=== PATIENT | female | born 1965 | race Caucasian/White ===

== ENCOUNTER 2017-03-13 22:02 | Emergency (ER) | payer SELFPAY ==
--- NOTE | 2017-03-13 22:39 | DIAGNOSTIC IMAGING REPORT ---
PROCEDURE: XR LUMBAR SPINE 5 VIEWS INDICATION: LOWER BACK PAIN TECHNIQUE: Five views. COMPARISON: None. FINDINGS: Normal alignment without fracture or suspicious osseous lesion. Straightening of the lumbar spine. Mild L2-3, L3-4, L4-5 and moderate L5-S1 disc space narrowing. Mild spur formation. No spondylolysis. Degenerative changes of the lower facets. Soft tissues are unremarkable. IMPRESSION: 1. Mild degenerative changes with multilevel disc space narrowing 2. Loss of lordosis suggestive of muscular spasm.
--- NOTE | 2017-03-13 23:37 | ED NURSING NOTES ---
Clinical Report - Nurses [facility] [address] [place] [address] 03/13/2017 22:03 Patient: HEATHER CARPENTER TRIAGE Triage time 2210. Acuity: LEVEL 4. Chief Complaint: BACK PAIN. 22:10. ASHLEY COMA SCORE: [place] Coma Scale: 15- eyes open spontaneously (4); best verbal response- oriented x 4 (5); best motor response- obeys commands (6). --22:17 Roxann Francisco R.N. 22:10 03/13/17. BP: 143/86. HR: 60. RR: 22. O2 saturation: 98% on room air. Temp: 98.2 F. --22:17 Roxann Francisco R.N. Weight: 106.5 kg stated. Height/Length: 67 inches Per Patient. BMI: 36.8. --22:14 Roxann Francisco R.N. Medications Ibuprofen Oral 400 mg, 3x a day as needed, last dose 0. --22:15 Roxann Francisco R.N. Allergies No Known Drug Allergy. --22:15 Roxann Francisco R.N. History Arrived by private vehicle. Historian: patient. Accompanied by spouse. No primary care physician. The patient has had trouble walking. PAST MEDICAL HX: The patient is post-menopausal. SURGERY HX: Appendectomy. SOCIAL HX: Never smoker. Occasional alcohol use. No drug use. --22:17 Roxann Francisco R.N. ( bent over to apple picker a cat, swiveled around and felt that she strained a muscle in her back). --22:19 Roxann Francisco R.N. PROBLEMS: Pneumonia. URI. --22:16 Roxann Francisco R.N. Interventions ID band on patient. To treatment room. --22:17 Roxann Francisco R.N. PHYSICAL ASSESSMENT 22:10. To room via wheelchair. GENERAL / NEURO / PSYCH: Alert. Oriented X 4. Appears in pain. RESPIRATORY: Respirations not labored. CVS: Capillary refill less than 2 seconds. GI / : Abdomen soft. ( denies urinary symptoms). EXTREMITIES: Limited ROM present. BACK: Limited ROM of the back. Soft tissue tenderness. --22:18 Roxann Francisco R.N. NURSING PROGRESS NOTES 22:10. Cold pack applied. Patient gowned. Head of bed elevated. Reassurance given. Patient identifiers checked. Call light placed in reach. Side rails up. Bed placed in lowest position. Patient ready for evaluation- chart flagged. --22:17 Roxann Francisco R.N. 22:24 03/13/17. Patient transported by wheelchair with tech. --22:24 Roxann Francisco R.N. 22:33. Patient returned from radiology by wheelchair with tech. --22:35 Roxann Francisco R.N. 22:36 03/13/2017 Toradol (Ketorolac Tromethamine) IM 60 mg given. Given in the right ventral gluteus. Allergies verified and confirmed 5 rights. --22:36 Roxann Francisco R.N. 22:36 03/13/2017 Cyclobenzaprine PO Tablets 10 mg given. Allergies verified, confirmed 5 rights and sedative warning given to the patient. --22:36 Roxann Francisco R.N. Care transferred and report received. --22:54 Nena Calix R.N. DISPOSITION / DISCHARGE Condition at departure: improved and stable. No learning barriers present. Discharge instructions provided and reviewed with the patient. Reviewed medication(s) side effects, precautions, dosing and course information. Prescription(s) given to the patient. Patient verbalized understanding. Written instructions provided in Icelandic. The patient was discharged home and accompanied by spouse. She left the Emergency Department in a wheelchair and via private vehicle. Spouse driving. --23:47 Nena Calix R.N. 23:47 03/13/17. BP: 149/95. HR: 84. RR: 16. O2 saturation: 99% on room air. Temp: deferred. [place]-Hernandez pain scale: 4/10. --23:47 Nena Calix R.N. Locked/Released at 03/13/2017 23:48 by Nena Calix R.N.
--- NOTE | 2017-03-13 23:37 | ED ORDER SUMMARY ---
..... Patient: HEATHER CARPENTER OrderSheet [facility] VisitID: [id number] [place] [address] 52y, F Registration Date/Time: 03/13/2017 ORDER SHEET Weight: 106.5 kg (stated) Allergies: No Known Drug Allergy GENERAL ORDERS: Lumbar Spine 5V Urgent (22:17 03/13/2017 Marquise Blanco) (Ack 22:22 [facility] ER Transportation Agent) (22:31 DDean R.N.) MEDICATION ORDERS: Cyclobenzaprine PO 10 mg (NOW) (22:18 03/13/2017 Marquise Blanco) (Ack 22:25 DDean R.N.) (22:36 DDean R.N.) Toradol IM 60 mg (NOW) (22:25 03/13/2017 Marquise Blanco) (Ack 22:31 DDean R.N.) (22:36 DDean R.N.) IV FLUIDS: Toradol IV 30 mg (NOW) (22:18 03/13/2017 Marquise Blanco) (Ack 22:25 DDean R.N.) (Cancelled: Duplicate Order22:25 Marquise Blanco) ORDER SHEET NOTES: [Electronically signed by Nena Calix R.N. (23:48 03/13/2017)] [Electronically signed by Sonido Goldstein Dr. (04:59 03/16/2017)] [Electronically locked/signed by Nena Calix R.N. (23:48 03/13/2017)]
--- NOTE | 2017-03-13 23:37 | ED ORDER SUMMARY ---
..... Patient: HEATHER CARPENTER OrderSheet [facility] VisitID: [id number] [place] [address] 52y, F Registration Date/Time: 03/13/2017 ORDER SHEET Weight: 106.5 kg (stated) Allergies: No Known Drug Allergy GENERAL ORDERS: Lumbar Spine 5V Urgent (22:17 03/13/2017 Marquise Blanco) (Ack 22:22 [facility] ER Deputy Coroner Investigator) (22:31 DDean R.N.) MEDICATION ORDERS: Cyclobenzaprine PO 10 mg (NOW) (22:18 03/13/2017 Marquise Blanco) (Ack 22:25 DDean R.N.) (22:36 DDean R.N.) Toradol IM 60 mg (NOW) (22:25 03/13/2017 Marquise Blanco) (Ack 22:31 DDean R.N.) (22:36 DDean R.N.) IV FLUIDS: Toradol IV 30 mg (NOW) (22:18 03/13/2017 Marquise Blanco) (Ack 22:25 DDean R.N.) (Cancelled: Duplicate Order22:25 Marquise Blanco) ORDER SHEET NOTES: [Electronically signed by Nena Calix R.N. (23:48 03/13/2017)] [Electronically signed by Sonido Goldstein Dr. (04:59 03/16/2017)] [Electronically locked/signed by Nena Calix R.N. (23:48 03/13/2017)]
--- NOTE | 2017-03-13 23:37 | ED NURSING NOTES ---
Clinical Report - Nurses [facility] [address] [place] [address] 03/13/2017 22:03 Patient: HEATHER CARPENTER TRIAGE Triage time 2210. Acuity: LEVEL 4. Chief Complaint: BACK PAIN. 22:10. ASHLEY COMA SCORE: [place] Coma Scale: 15- eyes open spontaneously (4); best verbal response- oriented x 4 (5); best motor response- obeys commands (6). --22:17 Roxann Francisco R.N. 22:10 03/13/17. BP: 143/86. HR: 60. RR: 22. O2 saturation: 98% on room air. Temp: 98.2 F. --22:17 Roxann Francisco R.N. Weight: 106.5 kg stated. Height/Length: 67 inches Per Patient. BMI: 36.8. --22:14 Roxann Francisco R.N. Medications Ibuprofen Oral 400 mg, 3x a day as needed, last dose 0. --22:15 Roxann Francisco R.N. Allergies No Known Drug Allergy. --22:15 Roxann Francisco R.N. History Arrived by private vehicle. Historian: patient. Accompanied by spouse. No primary care physician. The patient has had trouble walking. PAST MEDICAL HX: The patient is post-menopausal. SURGERY HX: Appendectomy. SOCIAL HX: Never smoker. Occasional alcohol use. No drug use. --22:17 Roxann Francisco R.N. 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 --22:19 Roxann Francisco R.N. PROBLEMS: Pneumonia. URI. --22:16 Roxann Francisco R.N. Interventions ID band on patient. To treatment room. --22:17 Roxann Francisco R.N. PHYSICAL ASSESSMENT 22:10. To room via wheelchair. GENERAL / NEURO / PSYCH: Alert. Oriented X 4. Appears in pain. RESPIRATORY: Respirations not labored. CVS: Capillary refill less than 2 seconds. GI / : Abdomen soft. ( denies urinary symptoms). EXTREMITIES: Limited ROM present. BACK: Limited ROM of the back. Soft tissue tenderness. --22:18 Roxann Francisco R.N. NURSING PROGRESS NOTES 22:10. Cold pack applied. Patient gowned. Head of bed elevated. Reassurance given. Patient identifiers checked. Call light placed in reach. Side rails up. Bed placed in lowest position. Patient ready for evaluation- chart flagged. --22:17 Roxann Francisco R.N. 22:24 03/13/17. Patient transported by wheelchair with tech. --22:24 Roxann Francisco R.N. 22:33. Patient returned from radiology by wheelchair with tech. --22:35 Roxann Francisco R.N. 22:36 03/13/2017 Toradol (Ketorolac Tromethamine) IM 60 mg given. Given in the right ventral gluteus. Allergies verified and confirmed 5 rights. --22:36 Roxann Francisco R.N. 22:36 03/13/2017 Cyclobenzaprine PO Tablets 10 mg given. Allergies verified, confirmed 5 rights and sedative warning given to the patient. --22:36 Roxann Francisco R.N. Care transferred and report received. --22:54 Nena Calix R.N. DISPOSITION / DISCHARGE Condition at departure: improved and stable. No learning barriers present. Discharge instructions provided and reviewed with the patient. Reviewed medication(s) side effects, precautions, dosing and course information. Prescription(s) given to the patient. Patient verbalized understanding. Written instructions provided in [place]. The patient was discharged home and accompanied by spouse. She left the Emergency Department in a wheelchair and via private vehicle. Spouse driving. --23:47 Nena Calix R.N. 23:47 03/13/17. BP: 149/95. HR: 84. RR: 16. O2 saturation: 99% on room air. Temp: deferred. [place]-Hernandez pain scale: 4/10. --23:47 Nena Calix R.N. Locked/Released at 03/13/2017 23:48 by Nena Calix R.N.
--- NOTE | 2017-03-13 23:37 | ED CLINICAL REPORT ---
Clinical Report - Physicians/Mid Levels [facility] [address] [place] [address] 03/13/2017 22:03 Patient: HEATHER CARPENTER Time Seen: 2108. Arrived- By private vehicle. Historian- patient. HISTORY OF PRESENT ILLNESS Chief Complaint: BACK PAIN. It is described as being moderate in degree and in the area of the left mid lumbar spine, left lower lumbar spine, right mid lumbar spine and right lower lumbar spine. The quality is noted to be aching. No radiation. Modifying factors. (worsened by moving. better with rest.). Onset- past few days and it is still present. It was abrupt in onset and has been constant but is not gone now. No bladder dysfunction, bowel dysfunction, sensory loss or motor loss. Additional history - no fever, saddle anesthesia, urinary retention, or incontinence. Patient notes the possibility of an injury but denies injury to the head or neck. Mechanism of injury- she was lifting (kitten and turning). Occurred at home. No other injury. Similar symptoms previously: None. Recent medical care: Not recently seen/assessed. REVIEW OF SYSTEMS No fever, skin rash, headache, abdominal pain or nausea. No vomiting. All systems otherwise negative, except as recorded above. PAST HISTORY See nurses notes. SOCIAL HISTORY Never smoker. Occasional alcohol use. No drug use. No recent travel. Is a local resident. ADDITIONAL NOTES The nursing notes have been reviewed. PHYSICAL EXAM Vital Signs: 03/13/2017 22:10 BP: 143/86. HR: 60. RR: 22. O2 saturation: 98%. Temp: 98.2 F. Oxygen saturation normal. Appearance: Alert. No acute distress. HEENT: Normal external inspection. Eyes: Pupils equal, round and reactive to light. ENT: Ears normal. Pharynx normal. Neck: Normal inspection. Neck nontender. Painless ROM. CVS: Heart sounds normal. Pulses normal. Respiratory: No respiratory distress. Breath sounds normal. Abdomen: No visible injury. Soft and nontender. Bowel sounds normal. Back: Normal inspection. Mild soft tissue tenderness in the right upper and mid and left upper and mid lumbar area. No vertebral point tenderness. (no overlying skin changes). Skin: Skin warm and dry. Normal skin color. No rash. Normal skin turgor. Extremities: Extremities exhibit normal ROM. Extremities nontender. Neuro: Oriented X 3. Mood/affect normal. No motor deficit. No sensory deficit. LABS, X-RAYS, AND EKG LS-Spine X-rays: (PROCEDURE: XR LUMBAR SPINE 5 VIEWS INDICATION: LOWER BACK PAIN TECHNIQUE: Five views. COMPARISON: None. FINDINGS: Normal alignment without fracture or suspicious osseous lesion. Straightening of the lumbar spine. Mild L2-3, L3-4, L4-5 and moderate L5-S1 disc space narrowing. Mild spur formation. No spondylolysis. Degenerative changes of the lower facets. Soft tissues are unremarkable. IMPRESSION: 1. Mild degenerative changes with multilevel disc space narrowing 2. Loss of lordosis suggestive of muscular spasm.). Views: cross table lateral, AP, lateral, obliques and coned down view. The X-rays were independently viewed by me and interpreted by the radiologist. The X-rays were discussed with the radiologist (via pacs). PROGRESS AND PROCEDURES Course of Care: The patient is a pleasant 52 yo female presenting for back pain. Based on the patient's examination and history, patient has no red flags requiring imaging at this time. Except for age. The patient will be managed conservatively at this time with nonsteroidal anti-inflammatory medications. Patient had driven here to the emergency department. Nonsedating medications offered. Patient was agreeable to the treatment and plan. Pain medication as provided. Patient reports slight improvement with the discomfort. Patient continues to be neurovascularly intact. Had long discussion with patient in regards to back pain. Recommended patient follow up with his primary care doctor for further evaluation and management of the back pain. I discussed the patient workup, diagnosis, home care, follow-up, and return precautions. All questions answered. The patient expressed understanding of these instructions and was agreeable to them. Do not feel patient has cauda equina syndrome, conus medullaris syndrome, or paraspinal infection. Did not feel this is atypical presentation for aortic dissection or appendicitis. Patient is nontoxic and in no acute distress. Did not feel patient is being admitted to the hospital or require further emergency department workup/evaluation. Disposition: Discharged. Condition: good. CLINICAL IMPRESSION 03/13/2017 22:10 BP: 143/86. HR: 60. RR: 22. O2 saturation: 98%. Temp: 98.2 F. Oxygen saturation normal. Acute lumbar strain. Essential hypertension. INSTRUCTIONS Warnings: GENERAL WARNINGS: Return or contact your physician immediately if your condition worsens or changes unexpectedly, if not improving as expected, or if other problems arise. SPECIFICALLY, return if you develop weakness, numbness, tingling, pain or incontinence. fever or other concerns. Your Current Medications: CONTINUE TAKING THE FOLLOWING MEDICATIONS: Ibuprofen Oral : 400 mg 3x a day, Last: 2200, prn. Prescription Medications: Flexeril 10 mg: take 1 orally every 8 hours as needed for muscle spasm or pain. Dispense thirty (30). No refills. Substitution is permissible. Motrin 600 mg tablets: take 1 tablet orally every 6 hours as needed for pain, stiffness or swelling. Dispense thirty (30). No refill. Substitution is permissible. (take with food) Follow-up: Return to the emergency department as needed. Follow up with your doctor in three days. Reason for referral: recheck today's concerns. Summary of care provided to patient via paper. Screening today revealed the patient's blood pressure to be in the hypertensive range. The patient should follow up with a primary care provider for blood pressure management. Understanding of the discharge instructions verbalized by patient. (Electronically signed by Sonido Goldstein Dr. 03/16/2017 4:59)
--- NOTE | 2017-03-16 04:59 | ED DISCHARGE INSTRUCTIONS ---
Patient: HEATHER CARPENTER General Instructions [facility] VisitID: [id number] [place] [address] 52y, F Registration Date/Time: 03/13/2017 03/13/2017 22:10 BP: 143/86. HR: 60. RR: 22. O2 saturation: 98%. Temp: 98.2 F. Oxygen saturation normal. Acute lumbar strain. Essential hypertension. INSTRUCTIONS Warnings: GENERAL WARNINGS: Return or contact your physician immediately if your condition worsens or changes unexpectedly, if not improving as expected, or if other problems arise. SPECIFICALLY, return if you develop weakness, numbness, tingling, pain or incontinence. fever or other concerns. Your Current Medications: CONTINUE TAKING THE FOLLOWING MEDICATIONS: Ibuprofen Oral : 400 mg 3x a day, Last: 2200, prn. Prescription Medications: Flexeril 10 mg: take 1 orally every 8 hours as needed for muscle spasm or pain. Dispense thirty (30). No refills. Substitution is permissible. Motrin 600 mg tablets: take 1 tablet orally every 6 hours as needed for pain, stiffness or swelling. Dispense thirty (30). No refill. Substitution is permissible. (take with food) Follow-up: Return to the emergency department as needed. Follow up with your doctor in three days. Reason for referral: recheck today's concerns. Summary of care provided to patient via paper. Screening today revealed the patient's blood pressure to be in the hypertensive range. The patient should follow up with a primary care provider for blood pressure management. Understanding of the discharge instructions verbalized by patient. ADDITIONAL INFORMATION Back Pain [Acute Or Chronic] Back pain is usually caused by an injury to the muscles or ligaments of the spine. Sometimes the disks that separate each bone in the spine may bulge and cause pain by pressing on a nearby nerve. Back pain may also appear after a sudden twisting/bending force (such as in a car accident), after a simple awkward movement, or lifting something heavy with poor body positioning. In either case, muscle spasm is often present and adds to the pain. Acute back pain usually gets better in one to two weeks. Back pain related to disk disease, arthritis in the spinal joints or spinal stenosis (narrowing of the spinal canal) can become chronic and last for months or years. Unless you had a physical injury (for example, a car accident or fall) X-rays are usually not ordered for the initial evaluation of back pain. If pain continues and does not respond to medical treatment, x-rays and other tests may be performed at a later time. Home Care: You may need to stay in bed the first few days. But, as soon as possible, begin sitting or walking to avoid problems with prolonged bed rest (muscle weakness, worsening back stiffness and pain, blood clots in the legs). When in bed, try to find a position of comfort. A firm mattress is best. Try lying flat on your back with pillows under your knees. You can also try lying on your side with your knees bent up towards your chest and a pillow between your knees. Avoid prolonged sitting. This puts more stress on the lower back than standing or walking. During the first two days after injury, apply an ICE PACK to the painful area for 20 minutes every 2-4 hours. This will reduce swelling and pain. HEAT (hot shower, hot bath or heating pad) works well for muscle spasm. You can start with ice, then switch to heat after two days. Some patients feel best alternating ice and heat treatments. Use the one method that feels the best to you. You may use acetaminophen (Tylenol) or ibuprofen (Motrin, Advil) to control pain, unless another pain medicine was prescribed. [NOTE: If you have chronic liver or kidney disease or ever had a stomach ulcer or GI bleeding, talk with your doctor before using these medicines.] Be aware of safe lifting methods and do not lift anything over 15 pounds until all the pain is gone. Follow Up with your doctor or this facility if your symptoms do not start to improve after one week. Physical therapy may be needed. [NOTE: If X-rays were taken, they will be reviewed by a radiologist. You will be notified of any new findings that may affect your care.] Get Prompt Medical Attention if any of the following occur: Pain becomes worse or spreads to your legs Weakness or numbness in one or both legs Loss of bowel or bladder control Numbness in the groin or genital area High Blood Pressure -- To Be Confirmed [No Tx] Your blood pressure was higher today than normal. Sometimes anxiety or pain can cause a temporary rise in blood pressure that later returns to normal. If your blood pressure is high on one measurement, this does not mean that you have hypertension (a chronic illness). However, you must have your blood pressure measured again within the next few days to find out if its still high. A normal blood pressure is 120/80 or less. The first (top) number is the "systolic" pressure. The second (bottom) number is the "diastolic" pressure. Hypertension exists when either the top number is 140 or higher, OR the bottom number is 90 or higher on repeated measurements. Blood pressure in the range of 120-140 (systolic) or 80-89 (diastolic) is considered "pre-hypertension". This means your are at risk for getting hypertension. You should have regular blood pressure checks to be sure your blood pressure is not rising. Home Care: Measure your blood pressure on 3 different days and write down the results. This can be done at your doctor's office or this facility. Some pharmacies and grocery stores offer automated blood pressure machines for your use. Follow Up: If your blood pressure is "high" (over 120/80) on 2 out of 3 days, you will need to follow up with your doctor for further evaluation and treatment. DO NOT PUT THIS OFF! Untreated high blood pressure increases the risk for heart attack, also known as acute myocardial infarction, or AMI, and stroke. It is a treatable condition. Get Prompt Medical Attention if any of the following occur: Chest pain or shortness of breath Severe headache Throbbing or rushing sound in the ears Nosebleed Sudden severe abdominal pain Extreme drowsiness, confusion or fainting Dizziness or vertigo (dizziness with spinning sensation) Weakness of an arm or leg or one side of the face Difficulty with speech or vision Cyclobenzaprine Hydrochloride Oral tablet What is this medicine? CYCLOBENZAPRINE (tory meneses) is a muscle relaxer. It is used to treat muscle pain, spasms, and stiffness. How should I use this medicine? Take this medicine by mouth with a glass of water. Follow the directions on the prescription label. If this medicine upsets your stomach, take it with food or milk. Take your medicine at regular intervals. Do not take it more often than directed. Talk to your box toe stitcher regarding the use of this medicine in children. Special care may be needed. What side effects may I notice from receiving this medicine? Side effects that you should report to your doctor or health child care sitter as soon as possible: allergic reactions like skin rash, itching or hives, swelling of the face, lips, or tongue chest pain fast heartbeat hallucinations seizures vomiting Side effects that usually do not require medical attention (report to your doctor or health child care sitter if they continue or are bothersome): headache What may interact with this medicine? Do not take this medicine with any of the following medications: cisapride droperidol flecainide grepafloxacin halofantrine levomethadyl MAOIs like Carbex, Eldepryl, Marplan, Nardil, and Parnate nilotinib pimozide probucol sertindole This medicine may also interact with the following medications: abarelix alcohol contrast dyes dolasetron guanethidine medicines for cancer medicines for depression, anxiety, or psychotic disturbances medicines to treat an irregular heartbeat medicines used for sleep or numbness during surgery or procedure methadone octreotide ondansetron palonosetron phenothiazines like chlorpromazine, mesoridazine, prochlorperazine, thioridazine some medicines for infection like alfuzosin, chloroquine, clarithromycin, levofloxacin, mefloquine, pentamidine, troleandomycin tramadol vardenafil What if I miss a dose? If you miss a dose, take it as soon as you can. If it is almost time for your next dose, take only that dose. Do not take double or extra doses. Where should I keep my medicine? Keep out of the reach of children. Store at room temperature between 15 and 30 degrees C (59 and 86 degrees F). Keep container tightly closed. Throw away any unused medicine after the expiration date. What should I tell my health care provider before I take this medicine? They need to know if you have any of these conditions: heart disease, irregular heartbeat, or previous heart attack liver disease thyroid problem an unusual or allergic reaction to cyclobenzaprine, tricyclic antidepressants, lactose, other medicines, foods, dyes, or preservatives or trying to get breast-feeding What should I watch for while using this medicine? Check with your doctor or health child care sitter if your condition does not improve within 1 to 3 weeks. You may get drowsy or dizzy when you first start taking the medicine or change doses. Do not drive, use machinery, or do anything that may be dangerous until you know how the medicine affects you. Stand or sit up slowly. Your mouth may get dry. Drinking water, chewing sugarless gum, or sucking on hard candy may help. Ibuprofen Oral tablet What is this medicine? IBUPROFEN (eye BYOO proe fen) is a non-steroidal anti-inflammatory drug (NSAID). It is used for dental pain, fever, headaches or migraines, osteoarthritis, rheumatoid arthritis, or painful monthly periods. It can also relieve minor aches and pains caused by a cold, flu, or sore throat. How should I use this medicine? Take this medicine by mouth with a glass of water. Follow the directions on the prescription label. Take this medicine with food if your stomach gets upset. Try to not lie down for at least 10 minutes after you take the medicine. Take your medicine at regular intervals. Do not take your medicine more often than directed. A special MedGuide will be given to you by the pharmacist with each prescription and refill. Be sure to read this information carefully each time. Talk to your box toe stitcher regarding the use of this medicine in children. Special care may be needed. What side effects may I notice from receiving this medicine? Side effects that you should report to your doctor or health child care sitter as soon as possible: allergic reactions like skin rash, itching or hives, swelling of the face, lips, or tongue black or bloody stools, blood in the urine or in vomit breathing problems changes in vision chest pain general ill feeling or flu-like symptoms nausea or vomiting redness, blistering, peeling or loosening of the skin, including inside the mouth slurred speech or weakness on one side of the body stomach pain unexplained weight gain or swelling unusually weak or tired yellowing of eyes or skin Side effects that usually do not require medical attention (report to your doctor or health child care sitter if they continue or are bothersome): constipation or diarrhea dizziness gas or heartburn stomach upset What may interact with this medicine? Do not take this medicine with any of the following medications: cidofovir ketorolac methotrexate pemetrexed This medicine may also interact with the following medications: alcohol aspirin diuretics lithium other drugs for inflammation like prednisone warfarin What if I miss a dose? If you miss a dose, take it as soon as you can. If it is almost time for your next dose, take only that dose. Do not take double or extra doses. Where should I keep my medicine? Keep out of the reach of children. Store at room temperature between 15 and 30 degrees C (59 and 86 degrees F). Keep container tightly closed. Throw away any unused medicine after the expiration date. What should I tell my health care provider before I take this medicine? They need to know if you have any of these conditions: asthma cigarette smoker drink more than 3 alcohol containing drinks a day heart disease or circulation problems such as heart failure or leg edema (fluid retention) high blood pressure kidney disease liver disease stomach bleeding or ulcers an unusual or allergic reaction to ibuprofen, aspirin, other NSAIDS, other medicines, foods, dyes, or preservatives or trying to get breast-feeding What should I watch for while using this medicine? Tell your doctor or healthcare professional if your symptoms do not start to get better or if they get worse. This medicine does not prevent heart attack or stroke. In fact, this medicine may increase the chance of a heart attack or stroke. The chance may increase with longer use of this medicine and in people who have heart disease. If you take aspirin to prevent heart attack or stroke, talk with your doctor or health child care sitter. Do not take other medicines that contain aspirin, ibuprofen, or naproxen with this medicine. Side effects such as stomach upset, nausea, or ulcers may be more likely to occur. Many medicines available without a prescription should not be taken with this medicine. This medicine can cause ulcers and bleeding in the stomach and intestines at any time during treatment. Ulcers and bleeding can happen without warning symptoms and can cause . To reduce your risk, do not smoke cigarettes or drink alcohol while you are taking this medicine. You may get drowsy or dizzy. Do not drive, use machinery, or do anything that needs mental alertness until you know how this medicine affects you. Do not stand or sit up quickly, especially if you are an older patient. This reduces the risk of dizzy or fainting spells. This medicine can cause you to bleed more easily. Try to avoid damage to your teeth and gums when you brush or floss your teeth. You have been given the following additional information: Back Pain (Acute Or Chronic) Hypertension, To Be Confirmed Cyclobenzaprine Hydrochloride Oral tablet Ibuprofen Oral tablet (Electronically signed by Sonido Goldstein Dr. 03/16/2017 4:59)
--- NOTE | 2017-03-16 04:59 | ED MED RECONCILIATION SUMMARY ---
Patient: HEATHER CARPENTER Medication Reconciliation Report [facility] VisitID: [id number] [place] [address] 52y, F Registration Date/Time: 03/13/2017 Weight: 106.5 kg Height/Length: 67 in. BMI: 36.8 ALLERGIES: No Known Drug Allergy The patient's Home Medications are listed below: CONTINUE TAKING THE FOLLOWING MEDICATIONS: Ibuprofen Oral 400 mg, 3x a day, last dose: 2200 The source(s) of the original Home Medication information: Not obtained. The following Medications were given to the patient in the Emergency Department: Toradol [IM] IM 60 mg, administered: 03/13/2017 10:36:00 PM Cyclobenzaprine [PO] PO 10 mg, administered: 03/13/2017 10:36:00 PM The following Medications were prescribed to the patient: Flexeril 10 mg: take 1 orally every 8 hours as needed for muscle spasm or pain. Dispense thirty (30). No refills. Substitution is permissible. -- Sonido Glodstein Dr. Motrin 600 mg tablets: take 1 tablet orally every 6 hours as needed for pain, stiffness or swelling. Dispense thirty (30). No refill. Substitution is permissible.(take with food) -- Sonido Goldstein Dr.
--- NOTE | 2017-03-16 04:59 | ED MAR SUMMARY ---
..... Medication Administration Record [facility] [address] [place] [address] Patient: HEATHER CARPENTER Visit ID: [id number] 52y, F Weight: 106.5 kg Height/Length: 67 in BMI: 36.8 ALLERGIES: No Known Drug Allergy Given 22:03/13/2017 Roxann Francisco, R.N. Medication Administered: CYCLOBENZAPRINE [PO], Dose: 10 mg Tablets PO. Medication Ordered: Cyclobenzaprine PO 10 mg (NOW). Given 22:03/13/2017 Roxann Francisco, R.N. Medication Administered: TORADOL [IM] (KETOROLAC TROMETHAMINE), Dose: 60 mg IM. Medication Ordered: Toradol IM 60 mg (NOW).
--- NOTE | 2017-03-16 04:59 | ED MAR SUMMARY ---
..... Medication Administration Record [facility] [address] [place] [address] Patient: HEATHER CARPENTER Visit ID: [id number] 52y, F Weight: 106.5 kg Height/Length: 67 in BMI: 36.8 ALLERGIES: No Known Drug Allergy Given 22:03/13/2017 Roxann Francisco, R.N. Medication Administered: CYCLOBENZAPRINE [PO], Dose: 10 mg Tablets PO. Medication Ordered: Cyclobenzaprine PO 10 mg (NOW). Given 22:03/13/2017 Roxann Francisco, R.N. Medication Administered: TORADOL [IM] (KETOROLAC TROMETHAMINE), Dose: 60 mg IM. Medication Ordered: Toradol IM 60 mg (NOW).
--- NOTE | 2017-03-16 04:59 | ED MED RECONCILIATION SUMMARY ---
Patient: HEATHER CARPENTER Medication Reconciliation Report [facility] VisitID: [id number] [place] [address] 52y, F Registration Date/Time: 03/13/2017 Weight: 106.5 kg Height/Length: 67 in. BMI: 36.8 ALLERGIES: No Known Drug Allergy The patient's Home Medications are listed below: CONTINUE TAKING THE FOLLOWING MEDICATIONS: Ibuprofen Oral 400 mg, 3x a day, last dose: 2200 The source(s) of the original Home Medication information: Not obtained. The following Medications were given to the patient in the Emergency Department: Toradol [IM] IM 60 mg, administered: 03/13/2017 10:36:00 PM Cyclobenzaprine [PO] PO 10 mg, administered: 03/13/2017 10:36:00 PM The following Medications were prescribed to the patient: Flexeril 10 mg: take 1 orally every 8 hours as needed for muscle spasm or pain. Dispense thirty (30). No refills. Substitution is permissible. -- Sonido Goldstein Dr. Motrin 600 mg tablets: take 1 tablet orally every 6 hours as needed for pain, stiffness or swelling. Dispense thirty (30). No refill. Substitution is permissible.(take with food) -- Sonido Goldstein Dr.
== END 2017-03-13 23:44 | disposition home or self-care (01) ==
LOC: ED SRH 22:02
DX: S39.012A Strain of muscle, fascia and tendon of lower back, initial encounter (principal); X50.9XXA Other and unspecified overexertion or strenuous movements or postures, initial encounter; Y93.89 Activity, other specified; Y99.9 Unspecified external cause status; Y92.009 Unspecified place in unspecified non-institutional (private) residence as the place of occurrence of the external cause; I10 Essential (primary) hypertension